=== PATIENT | male | born 1980 | race Caucasian/White ===

== ENCOUNTER 2020-08-17 08:33 | Emergency (ER) | payer MEDICARE, MEDICAID, SELFPAY ==
[2020-08-17 08:34] VITALS: BP 178/86; PULSE 74; RESP 18; TEMP 36.6; O2SAT 100; BMI 34.9
--- NOTE | 2020-08-17 08:45 | ED.DCSUM_ITS ---
History of Present Illness Chief Complaint: GI Bleed Informant: Patient, Family Narrative: 40-year-old male presenting with bleeding when he wipes his rectum after bowel movements. He does not know if he has hemorrhoids. He is not on any blood thinners. He states he feels otherwise well. He is not lightheaded, dizzy. He states he has no pain at the rectum. No fevers, chills, nausea, vomiting, constipation, diarrhea. He states he has never had a colonoscopy. He has no history of GI bleeding. Past Medical History - Allergies and Home Meds Allergies/Adverse Reactions: Allergies lisinopril Allergy (Verified 08/17/20 08:36) Laryngospasms Primary Care Physician: Anant Byrne MD [Primary Care Provider] - Past Medical History: - - Hypertension Surgical History: noncontributory Lives: With Family Smoking Status: Never smoker Alcohol: None Drugs: None Review of Systems General: Denies: Chills, Fever, Sweats Eyes: Denies: Visual changes - bilaterally, Diplopia ENT: Denies: Rhinorrhea, Sore throat Cardiovascular: Denies: Chest pain, Palpitations Respiratory: Denies: Dyspnea, Cough, Dyspnea on exertion Gastrointestinal: Reports: - - Blood on toilet paper when wiping with bowel movements. Denies: Abdominal pain, Nausea, Vomiting, Diarrhea, Melena Genitourinary: Denies: Dysuria, Hematuria, Frequency Musculoskeletal: Denies: Back pain, Extremity Pain Skin: Denies: Rash, Wounds Neurological: Denies: Headache, Weakness, Numbness Physical Exam Vital Signs/Narrative: Vital Signs Temp Pulse Resp BP Pulse Ox 08/17/20 08:34 97.9 F 74 18 178/86 H 100 Inital Vital Signs reviewed: Yes General: Well nourished, No Acute Distress Head: Normocephalic, Atraumatic Eyes: Perrl, EOMI. Negative for: Pale conjunctiva ENT: Moist mucous membranes, No rhinorrhea Cardiovascular: Regular rate, Regular rhythm Respiratory: No distress, CTA bilaterally Abdomen: Soft, Nontender, Nondistended. Negative for: Tender, Guarding Rectal: Nontender, - - Red blood at the anal verge. No hemorrhoids palpated internally or externally. Nontender exam. Back: Negative for: Nontender, Normal Inspection Skin: Normal color, No rash. Negative for: Cyanosis, Pallor Neurological: Alert, Oriented x3 Psychological: Normal affect, Normal Mood Diagnostic/Tx/Re-eval Laboratory Data 08/17/20 08/17/20 08/17/20 08:55 08:55 08:55 WBC 7.5 RBC 5.45 Hgb 15.1 Hct 47.7 MCV 87.5 MCH 27.7 MCHC 31.7 L RDW Std Deviation 42.5 RDW Coeff of Omaira 13.2 Plt Count 303 MPV 10.4 Immature Gran % (Auto) 0.400 Neut % (Auto) 58.0 Lymph % (Auto) 30.1 [place] % (Auto) 8.7 Eos % (Auto) 2.1 Baso % (Auto) 0.7 Absolute Neuts (auto) 4.3 Absolute Lymphs (auto) 2.24 Nucleated RBC % 0 PT Cancelled INR Cancelled Sodium 141 Potassium 3.6 Chloride 107 Carbon Dioxide 27.0 Anion Gap 7 BUN 12 Creatinine 1.25 Estim Creat Clear Calc 80.13 Est GFR (MDRD) Af Amer 83 Est GFR (MDRD) Non-Af 69 BUN/Creatinine Ratio 9.6 L Glucose 115 H Calcium 9.1 Total Bilirubin 0.80 AST 29 ALT 46 Alkaline Phosphatase 113 Total Protein 7.6 Albumin 3.9 Globulin 3.7 Albumin/Globulin Ratio 1.1 08/17/20 09:15 WBC RBC Hgb Hct MCV MCH MCHC RDW Std Deviation RDW Coeff of Omaira Plt Count MPV Immature Gran % (Auto) Neut % (Auto) Lymph % (Auto) [place] % (Auto) Eos % (Auto) Baso % (Auto) Absolute Neuts (auto) Absolute Lymphs (auto) Nucleated RBC % PT Cancelled INR Cancelled Sodium Potassium Chloride Carbon Dioxide Anion Gap BUN Creatinine Estim Creat Clear Calc Est GFR (MDRD) Af Amer Est GFR (MDRD) Non-Af BUN/Creatinine Ratio Glucose Calcium Total Bilirubin AST ALT Alkaline Phosphatase Total Protein Albumin Globulin Albumin/Globulin Ratio - Medical Decision Making Patient presents with concern for bleeding in his stool. He says he does not have any abdominal pain. He does not have any rectal pain. On examination there is some dried blood around the anus. I do not palpate any external or internal hemorrhoids. He has had no active bleeding here. He states that he only noticed it when he was wiping. His hemoglobin is 15. He has normal vital signs and is nontoxic-appearing. His renal function is normal. I discussed the patient with Dr. Berg who agrees with the patient likely needs a nonemergent colonoscopy and she will see him as an outpatient. He was given precautions for return such as increased bleeding, shortness of breath, lightheadedness, dizziness or any other concerns he might have. Impression: 1. Lower GI bleed?stable ED Disposition - Plan for ED Patient: Disposition: Home or Assisted Living Instructions: Lower GI Endoscopy, When You Have Gastrointestinal (GI) Bleeding Prescriptions: Bisacodyl [Dulcolax] 5 mg PO DAILY #30 tablet.dr Transmission Status: Pending to [facility] Referrals: Anant Byrne MD [Primary Care Provider] - Mery Berg MD [STAFF PHYSICIAN] -
[2020-08-17 09:04] LABS: Absolute Lymphocyte Count 2.24 X10^3/uL (0.83-4.51); Absolute Neutrophil Count 4.3 X10^3/uL (2.0-7.7); Basophil# 0.05 X10^3/uL; Basophil% 0.7 % (0-1); Eosinophil# 0.16 X10^3/uL; Eosinophils% 2.1 % (0-5); Hematocrit 47.7 % (40-54); Hemoglobin 15.1 g/dL (13.0-16.5); Lymphocyte # 2.24 X10^3/ul (4.0); Lymphocyte % 30.1 % (19-41); Mean Corp Hgb Conc 31.7 g/dL (32-36); Mean Corpuscular Hgb 27.7 pg (27.0-32.0); Mean Corpuscular Volume 87.5 fL (80-94); Mean Platelet Vol. 10.4 fl (6.2-12.0); Monocyte# 0.65 X10^3/uL; Monocyte% 8.7 % (0-10); NRBC Flagged by Analyzer 0 % (0-5); Neutrophil # 4.32 X10^3/uL (2.7-7.7); Platelet Count 303 K/mm3 (150-450); RBC Distribution Width CV 13.2 % (11.6-14.6); RBC Distribution Width SD 42.5 fl (35.1-43.9); Red Blood Count 5.45 M/mm3 (4.6-6.2); White Blood Count 7.5 K/mm3 (4.4-11.0)
--- NOTE | 2020-08-17 09:08 | NURSING ---
BLUE TOP HEMOLIZED
[2020-08-17 09:21] LABS: ALB/GLOB Ratio 1.1 RATIO (0.9-2.4); AST(SGOT) 29 U/L (15-37); Alanine Aminotransfer ALT/SGPT 46 U/L (16-61); Albumin, Serum 3.9 g/dL (3.2-5.0); Alkaline Phosphatase 113 U/L (45-117); Anion Gap 7 (5-15); BUN 12 mg/dL (7-18); BUN/Creat Ratio 9.6 RATIO (10-20); Calcium,Total 9.1 mg/dL (8.5-10.1); Chloride 107 mmol/L (98-107); Creatinine, Serum 1.25 mg/dL (0.70-1.30); EST Glomerular Filtration Rate 69 mL/min (>60); Est Glom Filt Rate - Afr Amer 83 mL/min (>60); Estimated Creatinine Clearance 80.13 ml/min; Globulin 3.7 g/dL (2.2-4.2); Glucose 115 mg/dL (74-106); Potassium 3.6 mmol/L (3.5-5.1); Protein, Total 7.6 g/dL (6.4-8.2); Sodium Level 141 mmol/L (136-145)
[2020-08-17 09:51] VITALS: BP 136/91; BP 137/68; BP 138/86; PULSE 62; PULSE 67; PULSE 71
[2020-08-17 10:04] LABS: International Normalized Ratio 1.1; Prothrombin Time (Protime)PT. 13.9 SECONDS (11.7-14.9)
== END 2020-08-17 10:18 | disposition home or self-care (01) ==
PROVIDERS: Emergency Provider Student in an Organized Health Care Education/Training Program; PCP Family Medicine
DX: K62.5 Hemorrhage of anus and rectum (principal); I10 Essential (primary) hypertension; Z79.899 Other long term (current) drug therapy
CPT/HCPCS: 36415; 80053; 85025; 85610; 99284; A4216

== ENCOUNTER 2020-09-01 09:13 | Day surgery (SDC) | payer MEDICARE, MEDICAID, SELFPAY ==
[2020-08-25 08:42] VITALS: BMI 34.9
[2020-09-01] VITALS (8 sets, daily range): BP systolic 114–139; BP diastolic 72–86; PULSE 80–99; RESP 16–18; TEMP 36.5–36.9; O2SAT 93–99; BMI 34.7
--- NOTE | 2020-09-01 07:39 | HP_ITS ---
Intake Vital Signs 08/25/20 Height 5 ft 9 in 08/25/20 Weight: 237 lb 08/25/20 BMI 34.9 Intake Visit Reasons: ER F/U Blood in Stool/Discuss C-Scope Chief Complaint: blood in stool Header Set Up Operator Required: No Is patient in pain?: No Allergies lisinopril Allergy (Verified 08/25/20 08:42) Laryngospasms Medications Hydrochlorothiazide [Hctz] 25 mg PO DAILY 11/09/16 [History Confirmed 08/25/20] Bisacodyl [Dulcolax] 5 mg PO DAILY #30 tablet. 08/17/20 [Rx Confirmed 08/25/20] benzonatate 100 mg capsule ea PO 08/25/20 [History Confirmed 08/25/20] metoprolol succinate 50 mg tablet,extended release 24 hr tab PO 08/25/20 [History Confirmed 08/25/20] [facility] Medical History Environmental allergies (Acute) Rectal bleeding (Acute) HTN (hypertension) (Chronic) Social History (Updated 08/25/20 @ 09:[address] Mery Berg MD) Smoking Status: Never smoker alcohol intake: never HPI HPI Chief Complaint: blood in stool Details: Patient was informed that this visit will be billed to patient. Time: [id number], patient was on speaker phone with his mother as well This visit was conducted during - pandemic. FADY NAILS, is a 40 M who presents to the office today for bright red blood per rectum when he wipes. Patient states that this started last Tuesday into Tuesday. Patient did go to the ER was given some Dulcolax. Patient states it is only a small amount and is only on the toilet paper. Patient did have another episode on Tuesday. 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 Patient was told by his work to wait until he sees a doctor for this before coming back to work. Patient states he has bowel movements daily does admit to straining on the toilet. He states he occasionally has some abdominal pain but it is improved with bowel movements. Patient states he is tolerating a diet patient denies any nausea or vomiting or family history of colon cancer. Patient denies previous colonoscopy. ROS Const Constitutional: No anorexia, body ache, chills, excessive sweating, fatigue, fever(s), frequent falls, headache(s), decreased energy, malaise, night sweats, snoring, weakness, weight change, sleep problems, abnormal sleep pattern, change in appetite or other Eyes Eyes: No blurry vision, change in vision, double vision, discharge, dry eyes, bulging eyes, floaters, visual disturbances, eye pain, light sensitivity, spots in vision, tunnel vision or other ENT ENT: Positive for difficulty swallowing; no abnormal hearing, ear pain, ear discharge, ear pressure, hearing loss, tinnitus, dizziness/vertigo, balance problems, nosebleed/epistaxis, nasal congestion, nasal obstruction, nose pain, sinus pressure, sinus pain, nasal discharge, post nasal drip, headache(s), facial pain, dental pain, dry mouth, bad breath, hoarseness, lip swelling, mouth lesions, mouth pain, neck pain, sore throat, tongue swelling, throat swelling or other Resp Respiratory: No cough, change in phlegm color, chest congestion, excessive phlegm production, hemoptysis, pain on inspiration, shortness of breath, pain with cough, snoring, stridor, wheezing or other Cardio Cardiology: No chest pain at rest, chest pain with exertion, leg pain with exertion, excessive sweating, shortness of breath, dyspnea on exertion, generalized swelling, irregular heart rhythm, lightheadedness, orthopnea, radiating jaw, neck or arm pain, fast heart rate, slow heart rate, palpitations or other Gastro GI: Positive for abdominal pain, difficulty swallowing and blood in stool; no belching, bloating, change in bowel habits, change in stool character, coffee ground emesis, constipation, cramping, diarrhea, heartburn, feeling full early, excessive flatus, incontinent of stools, Vomiting blood/hematemesis, loose stools, Black,tarry stools, nausea/dyspepsia, pain with swallowing, vomiting or other Genitourinary Male: No difficulty urinating, burning urination, painful urination, urinary incontinence, urinary frequency, urinary urgency, urinary hesitancy, urinary retention, blood in urine, Frequent nighttime urination/ nocturia, post void dribbling, suprapubic fullness, side pain, sexual problems, genital lesions, genital itching, erectile dysfunction, penile discharge, difficulty with ejaculations, blood in semen, scrotal swelling, testicle lump, testicle pain or other Musc Musculoskeletal: No abnormal walking, joint pain, back pain, deformity, joint swelling, limited range of motion, loss of height, muscle cramps, muscle weakness, decreased muscle mass, body aches, neck pain, numbness, radiating pain into limb, stiffness, tingling or other Skin Skin: No acne, hair loss, change in hair, nail changes, boil, change in skin color, dry skin, redness, excessive hair growth, yellowing of the skin, lesions, itching, rash, skin pain, skin ulcer, sores, skin swelling, wounds or other Breast Breast: No change in breast shape, breast lump, breast pain, breast skin changes, breast swelling, nipple discharge or other Neuro Neurology: No abnormal walking, abnormal hearing, abnormal movements, abnormal speech, behavioral changes, confusion, unsteady gait/balance, dizziness, weakness, frequent falls, headache(s), lack of coordination, loss of vision, memory loss, numbness, tingling, visual disturbances, restless legs, fainting, tremor(s) or other Psych Psychiatric: No abnormal sleep pattern, No lack of enjoyment, No anxiety, No behavioral changes, No change in appetite, No confusion, No depression, No difficulty concentrating, No hopelessness, No irritability, No memory loss, No mood swings, No panic attacks, No paranoia, No Thoughts of harming yourself/Others, No hallucinations, No other Endo Endocrine: No change in body appearance, cold intolerance, excessive sweating, fatigue, flushing, heat intolerance, increased thirst/drinking, increased hunger, increased urination or other Aller/Imm Allergy/Immunologic: Positive for seasonal allergy symptoms; no food intolerance, itchy eyes, lip swelling, throat swelling, tongue swelling, hives, wheezing or other Jorge/Lymp Hematologic/Lymphatic: No easy bleeding, easy bruising, enlarged lymph nodes or other Exam Const General: cooperative Other: Unable to complete physical exam as this was a phone visit [facility] Musculoskeletal: No muscle weakness Details: Details:: Exam was limited due to phone visit with no video. Quality Reporting Medication Reconciliation ([facility] 68) benzonatate PO bisacodyl 5 mg PO DAILY hydrochlorothiazide 25 mg PO DAILY metoprolol succinate ER PO Tobacco Screening ([facility] 138) Smoking Status: Never smoker Assessment & Plan Problems 1. BRBPR (bright red blood per rectum) K62.5 Plan I have discussed the above with the patient. I have offered the patient colonoscopy for evaluation. I have explained the risks/benefits of the procedure and described the procedure. I have discussed the risks with the patient, including but not limited to: infection, bleeding, perforation of the GI tract requiring emergency surgery, inability to complete the procedure, injury to any internal organs, complications of anesthesia, etc. - the patient understands and agrees to proceed. I have answered all the patient's questions to the patient's satisfaction and the patient has no further questions. The patient has been given instructions for the colon cleansing preparation. 1 day of clears, MiraLAX Dulcolax split prep. Mery Berg M.D. Pager: [phone] [facility] [address] [place] [address], [address] [place] [id number] Office: [phone] Orders Orders: Colonoscopy Today Plan Detail Follow Up We will schedule colonoscopy Coding Level of Care Code Level 2 Telephone Diagnoses BRBPR (bright red blood per rectum) K62.5
[2020-09-01] MEDS: Lactated Ringers 1,000 ML 100 ML IV (09:47)
--- NOTE | 2020-09-01 10:11 | HP.PCM_ITS ---
History of Present Illness Date of Admission: 09/01/20 The patient is a 40 year old M presents for diagnostic colonoscopy due to bright red blood per rectum. last episode was last Tuesday. Previous to that he did have the initial episodes on Tuesday to Tuesday of the previous week. Patient went to the ER and did get some Dulcolax which he has been taking daily. Patient states the blood was bright red and only a small amount on the toilet paper. 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 He was told to have this looked into before coming back to work. Patient states he has had bowel movement since last Tuesday and those have been not had any blood. He does admit to straining in the past. Patient currently denies any abdominal pain. Patient denies any nausea/vomiting/family history of colon cancer denies any previous colonoscopies. Past Medical/Surgical History - Planned Operation Planned Operative Procedure/s: Colonoscopy Date of Operative Procedure: 09/01/20 Permit Signed: No S.O.S: No Is This Patient Having a Total Joint: No - Previous Hospitalizations/Surgeries HX Hospitalizations: Yes HX of Surgeries: skin tag removal Any Problems With Anesthesia: No You/Your Family Experience Fever (Hyperthermia) With Anes: No Cholinesterase deficiency: No - Cardiovascular Hx Chest Pain within Last 2 months: No Hx of Irregular Heartbeat and/or Afib: No Hx Heart Attack: No Hx Congestive Heart Failure: No Hx Rheumatic Fever: No Hx Hypertension: Yes - on meds Hx Internal Defibrillator: No Hx Pacemaker: No Hx Cardiac Catheterization: No Hx Cardiac Surgery/Stents/Etc.: No Hx Stress Test: No HX Edema: No Hx Pain in Legs when Walking/Leg Cramps: No - Respiratory Chronic Cough: No HX of Shortness of Breath: No Hoarseness: No Hx Chronic Obstructive Pulmonary Disease (COPD): No Hx Asthma: No Hx Emphysema: No Hx Sleep Apnea: No Hx Oxygen Use at Home: No Hx Respiratory Tract Infection/Cold (presently): No Do You Snore Loudly (louder than talking or can be heard): No Do You Often Feel Tired/ Fatigued/ Sleepy Dring Daytime?: No Has Anyone Observed You Stop Breathing During Sleep?: No Result (for STOP score): Negative Hx Smoking: No Smoking Status: Never smoker - Gastrointestinal Hx Gastroesophageal Reflux: Yes - mild Controlled With Meds: No Hx Gastrointestinal Disorders: No Hx Gastrointestinal Bleed: No Hx Ulcer: No Hx Hiatal Hernia: No Difficulty Chewing/Swallowing: No Recent Onset of Swallowing Problems: No Special diet followed at home: No Hx Unplanned Weight Loss of 20#: No HX Unplanned Weight Gain of 20#: No - Neurological Hx Seizures: No HX Syncope/Blackout Spells/Unconsciousness: No Hx CVA/Stroke: No Hx Transient Ischemic Attacks (TIA): No Hx Multiple Sclerosis: No Hx Parkinson's Disease: No Hx Head/Neck Injury: No Hx Headaches: No Hx Back Injury/Pain: No Recent Onset of Speech Difficulty: No Restless Legs: No Does patient have nerve stimulator: No Patient instructed to have device shut off: No Rep notified?: No - Blood Disorder Hx Leukemia: No Bleeding Tendencies: No Hx Deep Vein Thrombosis: No Hx High Cholesterol: No Blood Transmitted Disease: No Hx Hepatitis: No Hx Cirrhosis: No Hx Anemia: No Hx Blood Disorders: No - Reproduction : No - Genitourinary Hx Renal Disease: No - Musculoskeletal Hx Arthritis: No Hx Rheumatoid Arthritis: No Hx Gout: No Recent Onset of an Orthopedic Problem: No - Endocrine Hx Diabetes: No Thyroid Disease: No Hx Steroid Therapy: No - Psycho/Social Hx Substance Use: No Hx Alcohol Use: No Hx Anxiety: No Hx Depression: No Mental Illness: No Hx Dementia: No - Miscellaneous Hx Cancer: No Recent Exposure to Contagious Disease: No Active MRSA: No Hx of C-Diff: No Any Loose Teeth: No Allergies lisinopril Allergy (Verified 09/01/20 09:34) Laryngospasms - Discharge Is Pt Admitted From a Detention, or a Residential: No After D/C, Where Do you Plan to Go: Return Home - Physical Exam Vitals/I&O's: Vital Signs Temp Pulse Resp BP Pulse Ox 98.4 F 99 16 139/86 H 99 09/01/20 09:35 09/01/20 09:35 09/01/20 09:35 09/01/20 09:35 09/01/20 09:35 Oxygen Delivery Method Room Air Weight: 235 lb 0.204 oz Body Mass Index (BMI) 34.7 General: Alert, Oriented x3, Cooperative, No apparent distress HEENT: Atraumatic Lungs: Normal air movement Cardiovascular: Regular rate Abdomen: Soft, Non Tender, Non-Distended Extremities: No clubbing, No cyanosis, No edema Neurological: Cranial nerves II-XII grossly intact Psych/Mental Status: Normal Affect Microbiology Past 72 Hours 08/29/20 08:40 Interface Orders SARS-CoV-2 Antigen (Rapid) - Final Current Medications Lactated Ringer's () 1,000 mls @ 100 mls/hr IV .Q10H YOLANDA Last Admin: 09/01/20 09:47 Dose: 100 mls/hr Documented by: Assessment/Plan 40-year-old male with bright red blood per rectum Procedure Criteria Procedure Type: Elective COVID Risk Discussion: The surgeon/proceduralist and patient have discussed in detail the risk of exposure to and/or potential harm posed by the COVID-19 virus with having a surgery/procedure at this time versus the risk of delaying the surgery/procedure. It is not possible to know either the risk of delaying the surgery or procedure or chance of getting an infection with perfect accuracy, but a joint decision was made between the patient and the surgeon/proceduralist to proceed at this time with the scheduled surgery/procedure as indicated on the consent form. Surgery Risks - Colonoscopy I discussed with the patient the risks of the procedure: Yes Risks Include but are not Limited To: Risks include but are not limited to: Bleeding, perforation requiring further surgery, inability to complete colonoscopy requiring barium enema.
--- NOTE | 2020-09-01 10:54 | OP.COLON_ITS ---
Patient Name: Shant Garcia Procedure Date: 09/01/2020 10:19 AM Date of : 1980 Age: 40 Procedure: Colonoscopy Indications: Rectal bleeding Providers: Mery Berg MD Referring MD: Anant Byrne Medicines: Monitored Anesthesia Care Patient Profile: This is a 40 year old male. Last Colonoscopy: none. The patient's first colonoscopy is today. Complications: No immediate complications. Procedure: Pre-Anesthesia Assessment: - Prior to the procedure, a History and Physical was performed, and patient medications and allergies were reviewed. The patient's tolerance of previous anesthesia was also reviewed. The risks and benefits of the procedure and the sedation options and risks were discussed with the patient. All questions were answered, and informed consent was obtained. Prior Anticoagulants: The patient has taken no previous anticoagulant or antiplatelet agents. ASA Grade Assessment: Per anesthesia. After reviewing the risks and benefits, the patient was deemed in satisfactory condition to undergo the procedure. After I obtained informed consent, the scope was passed under direct vision. Throughout the procedure, the patient's blood pressure, pulse, and oxygen saturations were monitored continuously. The pediatric colonoscope was introduced through the anus and advanced to the cecum, identified by the appendiceal orifice, ileocecal valve and palpation. The colonoscopy was performed without difficulty. The patient tolerated the procedure well. The quality of the bowel preparation was good. Scope In: 10:29:00 AM Scope Withdrawal Time 0 hours 12 minutes 46 seconds Scope Out: 10:47:11 AM Total Procedure Duration Time 0 hours 18 minutes 11 seconds Findings: Hemorrhoids were found on perianal exam. Non-bleeding internal hemorrhoids were found during retroflexion. The hemorrhoids were Grade I (internal hemorrhoids that do not prolapse). The entire examined colon appeared normal. Impression: - Hemorrhoids found on perianal exam. - Non-bleeding internal hemorrhoids. - The entire examined colon is normal. - No specimens collected. Recommendation: - Discharge patient to home. - Resume previous diet. - Continue present medications. - Repeat colonoscopy at age 48/50 (depends if the age changes from 50) for annual screening. Procedure Code(s): --- Professional --- 71749, PT, Colonoscopy, flexible; diagnostic, including collection of specimen(s) by brushing or washing, when performed (separate procedure) Diagnosis Code(s): --- Professional --- K64.0, First degree hemorrhoids K62.5, Hemorrhage of anus and rectum CPT copyright 2017 [employer]. All rights reserved. The codes documented in this report are preliminary and upon piecer review may be revised to meet current compliance requirements. MD Mery Addison MD 09/01/2020 10:53:53 AM This report has been signed electronically. Number of Addenda: 0 Note Initiated On: 09/01/2020 10:19 AM
--- NOTE | 2020-09-01 10:54 | OP.CCLET_ITS ---
09/01/2020 Anant Byrne [address] [place] [address] Re : Colonoscopy procedure for Shant Garcia Dear Dr. Byrne This procedure was performed on Tuesday, September 01, 2020. My impressions and recommendations are as follows: Impressions : - Hemorrhoids found on perianal exam. - Non-bleeding internal hemorrhoids. - The entire examined colon is normal. - No specimens collected. Recommendations : - Discharge patient to home. - Resume previous diet. - Continue present medications. - Repeat colonoscopy at age 48/50 (depends if the age changes from 50) for annual screening. My findings are described in the full procedure note, which is enclosed. If I can be of further assistance, please feel free to contact me at Doctor phone number(s): , Work: . Sincerely, MD Mery Addison MD 09/01/2020 10:53:53 AM This report has been signed electronically.
== END 2020-09-01 11:45 | disposition home health service (06) ==
LOC: EN 09:14 → AC 09:15
PROVIDERS: PCP Family Medicine; Referring Provider Family Medicine; Visit Provider Surgery
PROC: 0DJD8ZZ Inspection of Lower Intestinal Tract, Via Natural or Artificial Opening Endoscopic (ICD-10-PCS; CPT 45378; principal; 2020-09-01 10:10)
DX: K64.0 First degree hemorrhoids (principal); K62.5 Hemorrhage of anus and rectum; I10 Essential (primary) hypertension; Z88.8 Allergy status to other drugs, medicaments and biological substances; Z20.828 Contact with and (suspected) exposure to other viral communicable diseases
CPT/HCPCS: G0121; 87426; C9803; J7120; J2405

== ENCOUNTER 2020-12-24 09:22 | Outpatient (RCR) | payer MEDICARE, MEDICAID, SELFPAY ==
[2020-09-01 09:35] VITALS: BMI 34.7
== END 2021-02-24 23:59 ==
LOC: IMMUN 09:22
PROVIDERS: PCP Family Medicine; Visit Provider Family Medicine
DX: Z23 Encounter for immunization (principal)
CPT/HCPCS: 0001A; 0002A; 91300

== ENCOUNTER 2022-09-14 23:52 | Emergency (ER) | payer MEDICARE, MEDICAID, SELFPAY ==
[2022-09-14 23:53] VITALS: PULSE 74; RESP 15; TEMP 36.1; O2SAT 97; BMI 31.1
--- NOTE | 2022-09-15 00:10 | EDS_ITS ---
HPI History of Present Illness Chief Complaint: Wound Check Informant: patient and parent Narrative Narrative: Patient presents secondary to wound check. He was diagnosed with melanoma and had lymph nodes removed 6 days ago. Tonight he noted his shirt was wet and there was water draining from one of the wounds. He denies any pain to the area. He has not had fever. [facility] Medical History Asthma Environmental allergies HTN (hypertension) Melanoma Rectal bleeding Home Medications hydrochlorothiazide 25 mg tablet 25 mg PO DAILY 11/09/16 [History Last Taken 09/01/20] metoprolol succinate 50 mg tablet,extended release 24 hr 50 tab PO 08/25/20 [History Last Taken 09/01/20] albuterol sulfate 90 mcg/actuation aerosol inhaler 1 inh inhalation ONCE 08/06/22 [History Last Taken Unknown] fluticasone furoate 100 mcg-vilanterol 25 mcg/dose inhalation powder (Breo Ellipta) 1 inh inhalation DAILY 08/06/22 [History Last Taken Unknown] pantoprazole 40 mg tablet,delayed release tablet PO 08/10/22 [History Last Taken Unknown] Allergy/AdvReac Type Severity Reaction Status Date / Time amlodipine [From [facility]] Allergy Rash Verified 09/14/22 23:56 lisinopril Allergy Laryngospas Verified 09/14/22 23:56 ms Family History Uncle Pancreatic cancer Surgical History Hx of colonoscopy Social History Smoking Status: Never smoker alcohol intake: never ROS ROS ED Constitutional Constitutional ED: Denies chills or fever(s) Eyes Eyes: Denies change in vision or discharge from eye(s) ENT ENT ED: Denies discharge from eye(s), rhinorrhea or sore throat Cardiovascular Cardiovascular: Denies chest pain or palpitations Respiratory/Chest Respiratory/Chest: Denies cough or dyspnea Gastrointestinal Gastrointestinal: Denies abdominal pain, nausea or vomiting Musculoskeletal Musculoskeletal: Denies back pain or extremity pain Integumentary Reports other Details: Drainage from wound ; Denies Abrasions or rash Neurologic Neurologic: Denies headache(s) or weakness Psychiatric Psychiatric: Denies anxiety or depression Allergic/Immunologic Allergic/Immunologic ED: Denies lip swelling or urticaria EXAM Physical Exam Narrative Exam Narrative: Patient sitting upright in bed no acute distress. Nontoxic-appearing. Const Vital Signs: 09/14/22 23:53 Temperature 96.9 F L Temperature Source Temporal Pulse Rate 74 Respiratory Rate 15 Pulse Ox 97 Oxygen Delivery Method Room Air Positive well nourished and well developed General Appearance ED: well developed HEENT Reports moist mucous membranes Eyes PERRL and EOMs intact bilaterally Neck no lymphadenopathy Resp normal respiratory effort and clear to auscultation bilaterally Cardio regular rate and regular rhythm GI normal to inspection, nondistended, normoactive bowel sounds Neuro oriented x3 Skin Skin Narrative: 6 cm closed incision site to the top of the right shoulder that is clean. No sign of infection. There is a 5 cm close incision in the right axilla with overlying skin glue. No palpable masses appreciated. No drainage from the wound at this time. No surrounding erythema or sign of infection. MDM MDM MDM Narrative Medical decision making narrative: I did perform a bedside ultrasound over the axillary lesion as this is where he had noted the drainage. There is a very small focus of fluid deep that appears to be serosanguineous. I do not see any debris or indication of infection at this time. He will call his surgeon tomorrow to notify them of these changes but will otherwise plan on keeping his follow-up appointment on September 23. Return instructions given. Discharge Plan Triage Chief Complaint: Wound Check ED Provider: Jamila Arguelles Dx/Rx/DC Orders Clinical Impression: Encounter for post surgical wound check Instructions: ED Wound Check (No Infection) Prescriptions: No Action metoprolol succinate 50 mg tablet extended release 24 hr 50 tab PO albuterol sulfate 90 mcg/actuation HFA aerosol inhaler 1 inh inhalation ONCE fluticasone furoate-vilanterol [Breo Ellipta] 100-25 mcg/dose blister with device 1 inh inhalation DAILY pantoprazole 40 mg tablet,delayed release (DR/EC) PO hydrochlorothiazide 25 MG tablet 25 mg PO DAILY Label Comments: htn Primary Care Provider: Anatn Byrne Referrals: Anant Byrne MD [Primary Care Provider] - Activity Restrictions/Additional Instructions: Call your surgeon's office tomorrow to notify them of the wound drainage. There is no evidence of infection at this time. Disposition Disposition: Home, Self Care
== END 2022-09-15 00:37 | disposition home or self-care (01) ==
LOC: ED 09-15 00:18
PROVIDERS: Emergency Provider Emergency Medicine; PCP Family Medicine; Visit Provider Emergency Medicine
DX: Z51.89 Encounter for other specified aftercare (principal)
CPT/HCPCS: 99282

== ENCOUNTER → 2024-03-07 | Outpatient (CLI) | payer MEDICARE, MEDICAID, SELFPAY ==
--- NOTE | 2024-03-07 09:45 | RAD_ITS ---
INDICATION: MELANOMA EXAMINATION/TECHNIQUE: X-RAY - XR Chest 2 Views COMPARISON: 03/29/2023 FINDINGS: LIFE-SUPPORT AND LINES: 1. None HEART AND VESSELS: The cardiac silhouette, pulmonary vasculature have normal appearance. No evidence of congestive failure. LUNGS AND PLEURAL SPACES: Shallow inspiration crowding of bronchovascular markings greater on the RIGHT than LEFT. No focal infiltrate or consolidation. Minimal plate atelectasis versus scar at the LEFT base. No pulmonary mass is noted. MEDIASTINUM AND HILAR REGIONS: No masses adenopathy noted. No areas of calcification. Visualized upper airway is normal in position. BONY ELEMENTS: No acute bony changes noted. RAD/Chest PA and Lateral IMPRESSION: 1. Shallow inspiration, crowding of bronchovascular markings. Plate atelectasis versus scar at LEFT lung base. 2. No evidence of focal infiltrate consolidation or congestive failure. 3. No pulmonary nodules or masses identified. Electronically Signed: Natanael Grossman MD at 22:33 EDT ,
[2024-03-07 10:06] LABS: Absolute Lymphocyte Count 1.71 X10^3/uL (0.83-4.51); Absolute Neutrophil Count 3.5 X10^3/uL (2.0-7.7); Basophil# 0.01 X10^3/uL; Basophil% 0.2 % (0-1); Eosinophil# 0.21 X10^3/uL; Eosinophils% 3.5 % (0-5); Hematocrit 46.2 % (40-54); Hemoglobin 14.6 g/dL (13.0-16.5); Lymphocyte # 1.71 X10^3/ul (0.83-4.51); Lymphocyte % 28.3 % (19-41); Mean Corp Hgb Conc 31.6 g/dL (32-36); Mean Corpuscular Hgb 27.3 pg (27.0-32.0); Mean Corpuscular Volume 86.5 fL (80-94); Mean Platelet Vol. 10.1 fl (6.2-12.0); Monocyte# 0.55 X10^3/uL; Monocyte% 9.1 % (0-10); NRBC Flagged by Analyzer 0 % (0-5); Neutrophil # 3.53 X10^3/uL (2.7-7.7); Neutrophil % 58.4 % (47-70); Platelet Count 314 K/mm3 (150-450); RBC Distribution Width CV 13.2 % (11.6-14.6); RBC Distribution Width SD 41.2 fl (35.1-43.9); Red Blood Count 5.34 M/mm3 (4.6-6.2)
[2024-03-07 11:15] LABS: AST(SGOT) 26 U/L (15-37); Alanine Aminotransfer ALT/SGPT 52 U/L (16-61); Albumin, Serum 3.6 g/dL (3.2-5.0); Alkaline Phosphatase 103 U/L (45-117); Anion Gap 8 (5-15); BUN 15 mg/dL (7-18); BUN/Creat Ratio 15.7 RATIO (10-20); Calcium,Total 8.9 mg/dL (8.5-10.1); Chloride 107 mmol/L (98-107); Creatinine, Serum 0.96 mg/dL (0.70-1.30); EST Glomerular Filtration Rate 92 mL/min (>60); Est Glom Filt Rate - Afr Amer 111 mL/min (>60); Globulin 3.7 g/dL (2.2-4.2); Glucose 110 mg/dL (74-106); LDH 193 U/L (87-241); Potassium 3.8 mmol/L (3.5-5.1); Protein, Total 7.3 g/dL (6.4-8.2); Sodium Level 141 mmol/L (136-145)
== END | disposition home or self-care (01) ==
LOC: RAD 09:33
PROVIDERS: PCP Family Medicine; Referring Provider Internal Medicine Hematology & Oncology; Visit Provider Internal Medicine Medical Oncology
DX: C43.61 Malignant melanoma of right upper limb, including shoulder (principal)
CPT/HCPCS: 36415; 71046; 80053; 83615; 85025